=== PATIENT | male | born 1995 | race Caucasian/White ===

== ENCOUNTER 2021-11-10 10:56 | Emergency (ER) | payer OTHER, SELFPAY ==
[~2021-11-10] VITALS: Ht 175.3 cm; Wt 95.9 kg
[2021-11-10] MEDS ORDERED: MEDR4PAK PO (13:51)
[2021-11-10] MEDS ORDERED: CYCL-707 PO (13:51)
[2021-11-10 14:10] VITALS: BP 147/111
== END 2021-11-10 14:22 | disposition home or self-care (01) ==
LOC: M ED 10:56
DX: S39.012A Strain of muscle, fascia and tendon of lower back, initial encounter (principal); M54.42 Lumbago with sciatica, left side; S81.012A Laceration without foreign body, left knee, initial encounter; W01.198A Fall on same level from slipping, tripping and stumbling with subsequent striking against other object, initial encounter; X50.1XXA Overexertion from prolonged static or awkward postures, initial encounter